=== PATIENT | male | born 1960 | race Caucasian/White ===

== ENCOUNTER 2018-03-29 14:41 | Emergency (ER) | payer BC ==
--- NOTE | 2018-03-29 16:01 | RAD ---
LEFT KNEE FOUR VIEWS: HISTORY: Injury. IMPRESSION: Mild degenerative changes with mild spurring. No fracture, joint effusion, or other acute osseous ab normality. POS: [facility]
== END 2018-03-29 15:47 | disposition home or self-care (01) ==
LOC: MADERS 14:41
DX: S86.912A Strain of unspecified muscle(s) and tendon(s) at lower leg level, left leg, initial encounter (principal); E78.5 Hyperlipidemia, unspecified; K21.9 Gastro-esophageal reflux disease without esophagitis; Z79.899 Other long term (current) drug therapy; W22.8XXA Striking against or struck by other objects, initial encounter; Y93.64 Activity, baseball